=== PATIENT | female | born 1935 | race Caucasian/White ===

== ENCOUNTER 2016-09-07 16:11 | Inpatient (IN) | payer MEDICARE, BC ==
[~2016-09-07] VITALS: Ht 165.1 cm; Wt 67.3 kg
[2016-09-07 16:11] VITALS: BP 136/53
[~2016-09-07 16:11] MED LIST: ASPIR LOW81 MG PO; ASPIRIN81 M1 PO; BENICAR40 MG PO; CEFUROXIME AXE250 MG PO; CYMBALTA30 MG PO; DARVOCET N 1001 TAB PO; DOXYCYCLINE MO100 M1 PO; DULOXETINE HCL60 MG PO; ESCITALOPRAM10 MG PO; EXELON13.3 MG/21 T; FUROSEMIDE40 MG PO; GABAPENTIN100 M1 PO; GABAPENTIN100 M2 PO; GABAPENTIN100 MG PO; HUMALOG100 U/ML SC; HYDROXYZINE PAM25 M1 PO; LANTUS SOLOS100 U/M1; LANTUS100 U/ML SC; LASIX20 MG PO; LASIX40 MG PO; LEVEMIR FLEX100 U/ML SC; LEXAPRO10 MG PO; LEXAPRO20 MG PO; LOPRESSOR100 M1 PO; LOSARTAN POTASS50 M1 PO; METOPROLOL SR100 MG PO; METOPROLOL SUC100 M1 PO; NAMENDA10 MG PO; NIFEDICAL XL30 MG PO; OXYCODONE HCL5 M1 PO; OXYCODONE5 M1 PO; PLAVIX75 MG PO; POTASSIUM CHLO10 ME4 PO; POTASSIUM CHLO10 MEQ PO; POTASSIUM CHLO20 ME1 PO; SIMVASTATIN20 MG PO; VITAMIN D1000 IU PO; VITAMIN D32000 UNIT PO; VITAMIN D50000 I3 PO; XANAX0.25 MG PO
[2016-09-07 16:50] LABS: MEAN CELL VOLUME 86.9 fl (81.0-99.0); MEAN CORPUSCULAR HGB 28.2 pg (27.0-31.0); MEAN CORPUSCULAR HGB CONC 32.4 g/dl (33.0-37.0); MEAN PLATELET VOLUME 11.1 fl (9.6-12.3); PLATELET COUNT AUTOMATED 187 10*3/uL (130-400); RED BLOOD COUNT 4.26 10*6/uL (4.10-5.10); RED CELL DISTRI WIDTH 13.2 % (0-14.5); WHITE BLOOD COUNT 7.6 10*3/uL (4.8-10.8)
[2016-09-07 17:03] LABS: ALBUMIN 3.3 gm/dl (3.1-4.5); ALKALINE PHOSPHATASE 60 U/L (45-117); BILIRUBIN, TOTAL 0.5 mg/dl (0.2-1.0); BUN 40 mg/dl (7-24); CARBON DIOXIDE 21 mmol/L (21-32); CHLORIDE 111 mmol/L (98-107); EST GLOM FILT AFRICAN AMERICAN 13 ml/min; GLUCOSE 232 mg/dL (65-99); POTASSIUM 4.7 mmol/L (3.5-5.1); SGOT/AST 23 IU/L (3-35); SGPT/ALT 18 U/L (12-78); SODIUM 145 mmol/L (136-145); TOTAL PROTEIN 7.5 gm/dL (6.4-8.2)
[2016-09-07] MEDS ORDERED: LEVEMIR10 ML SC (17:03)
[2016-09-07] MEDS ORDERED: NAMENDA-28 PO (17:05)
[2016-09-07] MEDS ORDERED: HYDROXYZINE PAM25 M1 PO (17:06)
[2016-09-07 17:10] LABS: BILIRUBIN NEGATIVE (NEGATIVE); BLOOD NEGATIVE (NEGATIVE); CLARITY SL CLOUDY (CLEAR); COLOR YELLOW (YELLOW); GLUCOSE NEGATIVE (NEGATIVE); KETONE NEGATIVE (NEGATIVE); LEUKO ESTERASE NEGATIVE (NEGATIVE); NITRITE NEGATIVE (NEGATIVE); PROTEIN NEGATIVE (NEGATIVE); SPECIFIC GRAVITY 1.015 (1.005-1.030); UROBILINOGEN 0.2 E.U./dl (0.2-1.0)
[2016-09-07 17:14] LABS: ATYPICAL LYMPHS 1 % (0-0); BASOPHIL # 0.1 10*3/uL (0-0.1); BASOPHILS 1 % (0-1); EOSINOPHIL # 0.2 10*3/uL (0-0.4); EOSINOPHILS 3 % (1-4); LYMPHOCYTE # 1.8 10*3/uL (1.3-4.4); MONOCYTE # 0.3 10*3/uL (0.1-1.0); NEUTROPHIL # 5.2 10*3/uL (2.3-7.9); NEUTROPHILS 68 % (47-73); TOTAL CELLS COUNTED 100 #CELLS
[2016-09-07 17:15] LABS: PLATELET SUFFICIENCY NORMAL (NORMAL)
[2016-09-07 17:17] LABS: URINE AMPHETAMINES < 1000 (1000ng/ml); URINE BARBITURATES < 200 (200ng/ml); URINE COCAINE < 300 (300ng/ml)
[2016-09-07 17:27] LABS: BACTERIA 2+; RBC 0-2 rbc/hpf (0-2); URINE REFLEX COMMENT YES (NO)
[2016-09-07 18:00] VITALS: BP 130/60
[2016-09-07 19:45] VITALS: BP 162/90
[2016-09-07 20:00] VITALS: BP 154/86
[2016-09-07] MEDS ORDERED: DEPAKOTE250 MG PO (20:26)
[2016-09-08] VITALS: BP 158/56
[2016-09-08 06:46] LABS: BASO % 0.6 % (0.0-1.0); EOS # 0.3 10*3/uL (0.0-0.4); EOS % 4.5 % (1.0-4.0); HEMATOCRIT 32.8 % (37.0-47.0); HEMOGLOBIN 10.3 g/dl (12.0-16.0); LYMPH # 1.7 10*3/uL (1.3-4.4); LYMPH % 27.7 % (27.0-41.0); MEAN CELL VOLUME 88.4 fl (81.0-99.0); MEAN CORPUSCULAR HGB 27.8 pg (27.0-31.0); MEAN CORPUSCULAR HGB CONC 31.4 g/dl (33.0-37.0); MEAN PLATELET VOLUME 10.9 fl (9.6-12.3); MONO # 0.5 10*3/uL (0.1-1.0); MONO % 7.7 % (3.0-9.0); NEUT # 3.7 10*3/uL (2.3-7.9); NEUT % 59.2 % (47.0-73.0); PLATELET COUNT AUTOMATED 220 10*3/uL (130-400); RED BLOOD COUNT 3.71 10*6/uL (4.10-5.10); RED CELL DISTRI WIDTH 13.2 % (0-14.5); WHITE BLOOD COUNT 6.2 10*3/uL (4.8-10.8)
[2016-09-08 07:10] LABS: FREE T4 1.05 ng/dl (0.76-1.46); MAGNESIUM 1.8 mg/dL (1.5-2.1); POTASSIUM 3.8 mmol/L (3.5-5.1); THYROID STIM HORMONE (HS) 0.409 uIU/ml (0.358-4.75)
[2016-09-08 07:17] LABS: HEMOGLOBIN A1c 8.6 % (4.8-5.6)
[2016-09-08 08:00] VITALS: BP 150/60
[2016-09-08 08:06] LABS: FOLIC ACID 5.3 ng/mL (>5.38)
[2016-09-08 12:00] VITALS: BP 160/62
[2016-09-08 16:00] VITALS: BP 165/70
[2016-09-08 20:00] VITALS: BP 153/55
[2016-09-09] VITALS: BP 140/55
[2016-09-09 07:56] LABS: ALBUMIN 2.5 gm/dl (3.1-4.5); BILIRUBIN, TOTAL 0.4 mg/dl (0.2-1.0); POTASSIUM 3.7 mmol/L (3.5-5.1); TOTAL PROTEIN 5.7 gm/dL (6.4-8.2)
[2016-09-09 08:00] VITALS: BP 160/50
[2016-09-09 12:00] VITALS: BP 119/50
[2016-09-09 16:00] VITALS: BP 154/68
[2016-09-09 20:00] VITALS: BP 136/78
[2016-09-10] VITALS: BP 157/58
[2016-09-10 06:36] LABS: ALBUMIN 2.7 gm/dl (3.1-4.5); PHOSPHOROUS 3.8 mg/dL (2.5-4.9); POTASSIUM 3.2 mmol/L (3.5-5.1)
[2016-09-10 08:00] VITALS: BP 136/72
[2016-09-10 12:00] VITALS: BP 140/76
[2016-09-10] MEDS ORDERED: NATURE'S BLEND F1 MG PO (13:33)
[2016-09-10 16:00] VITALS: BP 155/84
[2016-09-11] MEDS ORDERED: NAMENDA10 MG PO (22:31)
[2016-09-11] MEDS ORDERED: VISTARIL25 M2 PO (22:31)
[2016-09-11] MEDS ORDERED: VRAYLAR1.5 MG PO (22:32)
[2016-09-12] MEDS ORDERED: ATIVAN1 MG PO (03:42)
[2016-09-12] MEDS ORDERED: GEODON20 M1 IM (03:43)
[2016-09-12] MEDS ORDERED: ATIVAN2 MG/ML IM (03:43)
[2016-09-12] MEDS ORDERED: NAMENDA10 MG PO (04:34)
[2016-09-12] MEDS ORDERED: VRAYLAR1.5 MG PO (04:35)
[2016-09-12] MEDS ORDERED: NAMENDA-28 PO (04:46)
[2016-09-15] MEDS ORDERED: LEVEMIR10 ML SC (14:22)
[2016-09-15] MEDS ORDERED: NATURE'S BLEND F1 MG PO (14:22)
[2016-09-16] MEDS ORDERED: ZYVOX600 MG PEG (11:00)
[2016-09-21] MEDS ORDERED: REMERON15 M2 PO (00:05)
[2016-09-21] MEDS ORDERED: VRAYLAR3 MG PO (00:10)
[2016-09-23] MEDS ORDERED: HYDROXYZINE PAM25 M1 PEG (11:05)
[2016-09-23] MEDS ORDERED: METOPROLOL TART50 M1 PEG (11:05)
[2016-09-23] MEDS ORDERED: CLOTRIM ANTIFUNGAL1% T (11:05)
[2016-09-23] MEDS ORDERED: NORVASC10 MG PEG (11:05)
[2016-09-23] MEDS ORDERED: LOVENOX30 MG/0.3 SC (11:05)
[2016-09-23] MEDS ORDERED: NAMENDA10 MG PEG (11:05)
[2016-09-23] MEDS ORDERED: HUMALOG100 U/ML SC (11:05)
[2016-09-23] MEDS ORDERED: HYDRALAZINE HYD50 MG PEG (16:17)
== END 2016-09-10 17:19 | disposition home or self-care (01) | DRG 682 ==
LOC: ED 16:11 → 4E 18:35 → EDHOLD 18:35 → 4E 18:40
PROVIDERS: Family Medicine; Internal Medicine; Internal Medicine Nephrology; Registered Nurse
DX: N17.0 Acute kidney failure with tubular necrosis (principal); G93.40 Encephalopathy, unspecified; E87.0 Hyperosmolality and hypernatremia; E44.0 Moderate protein-calorie malnutrition; E11.22 Type 2 diabetes mellitus with diabetic chronic kidney disease; E87.8 Other disorders of electrolyte and fluid balance, not elsewhere classified; B37.2 Candidiasis of skin and nail; F32.9 Major depressive disorder, single episode, unspecified; F41.9 Anxiety disorder, unspecified; E78.00 Pure hypercholesterolemia, unspecified; E11.65 Type 2 diabetes mellitus with hyperglycemia; N18.3 Chronic kidney disease, stage 3 (moderate); I25.10 Atherosclerotic heart disease of native coronary artery without angina pectoris; D64.9 Anemia, unspecified; E53.8 Deficiency of other specified B group vitamins; E86.0 Dehydration; I12.9 Hypertensive chronic kidney disease with stage 1 through stage 4 chronic kidney disease, or unspecified chronic kidney disease; M19.90 Unspecified osteoarthritis, unspecified site; F03.90 Unspecified dementia, unspecified severity, without behavioral disturbance, psychotic disturbance, mood disturbance, and anxiety; Z90.710 Acquired absence of both cervix and uterus; Z89.611 Acquired absence of right leg above knee; Z98.51 Tubal ligation status; Z90.12 Acquired absence of left breast and nipple; Z80.9 Family history of malignant neoplasm, unspecified; Z82.49 Family history of ischemic heart disease and other diseases of the circulatory system; Z79.4 Long term (current) use of insulin; Z79.899 Other long term (current) drug therapy; Z68.21 Body mass index [BMI] 21.0-21.9, adult